=== PATIENT | female | born 1985 | race Caucasian/White ===

== ENCOUNTER 2021-06-09 01:58 | Emergency (ER) | payer MEDICAID ==
[~2021-06-09] VITALS: Ht 160 cm; Wt 58.5 kg
[2021-06-09] MEDS ORDERED: ondansetron 4mg/5ml UD cup PO STA (02:37)
[2021-06-09] MEDS ORDERED: ondansetron 4mg rapidly disintigrating tab PO STA (02:41)
[2021-06-09] MEDS ORDERED: normal saline 1000ML IV soln IVB ONE ×2 (02:55→04:50)
[2021-06-09 03:27] LABS: BASOPHILS % (AUTO) 0.7 % (0-1); EOSINOPHILS # (AUTO) 0.3 X10'3 (0-0.9); EOSINOPHILS % (AUTO) 3.9 % (0-6); HEMATOCRIT 42.8 % (35.0-45.0); HEMOGLOBIN 14.9 g/dl (12.0-16.0); LYMPHOCYTES # (AUTO) 1.4 X10'3 (1.1-4.8); LYMPHOCYTES % (AUTO) 20.1 % (21-51); MEAN CORPUSCULAR HGB CONC 34.8 g/dL (33.0-36.5); MEAN CORPUSCULAR VOLUME 89.1 FL (78-98); MEAN PLATELET VOLUME 7.9 FL (7.4-10.4); MONOCYTES # (AUTO) 0.4 X10'3 (0-0.9); MONOCYTES % (AUTO) 5.8 % (2-12); NEUTROPHILS # (AUTO) 4.7 X10'3 (1.8-7.7); NEUTROPHILS % (AUTO) 69.5 % (42-75); PLATELET COUNT 272 X10'3 (140-440); RED BLOOD COUNT 4.81 X10'6 (4.20-5.60); WHITE BLOOD COUNT 6.8 X10'3 (4.5-11.0)
[2021-06-09 03:36] LABS: ALANINE AMINOTRANSFERASE 13 U/L (12-78); ALBUMIN 4.4 G/DL (3.4-5.0); ALBUMIN/GLOBULIN RATIO 1.3 (1.1-1.5); ALKALINE PHOSPHATASE 62 IU/L (46-116); ANION GAP 15 (8-16); ASPARTATE AMINO TRANSFERASE 17 U/L (10-37); BILIRUBIN,TOTAL 1.6 MG/DL (0.1-1.0); BLOOD UREA NITROGEN 14 MG/DL (7-18); BUN/CREATININE RATIO 19.2 (6.6-38.0); CALCIUM 8.9 MG/DL (8.5-10.1); CHLORIDE 102 MMOL/L (99-107); CREATININE 0.73 MG/DL (0.40-0.90); GLUCOSE 79 MG/DL (70-104); LIPASE < 50 U/L (73-393); POTASSIUM 3.6 MMOL/L (3.5-5.1); SODIUM 139 MMOL/L (135-145); TOTAL CARBON DIOXIDE 21.6 MMOL/L (24-32); TOTAL PROTEIN 7.8 G/DL (6.4-8.2); eGFR 90 ML/MIN
[2021-06-09] MEDS ORDERED: acetaminophen 325mg tablet PO ONE (04:05)
--- NOTE | 2021-06-09 04:27 | NUR ---
PT UNABLE TO VOID
[2021-06-09] MEDS ORDERED: ONDA4TAB6 PO (04:46)
[2021-06-09 06:07] VITALS: BP 98/57
== END 2021-06-09 06:16 | disposition home or self-care (01) ==
LOC: ER 01:58
DX: K52.9 Noninfective gastroenteritis and colitis, unspecified (principal); Z20.822 Contact with and (suspected) exposure to COVID-19; E86.0 Dehydration; R42 Dizziness and giddiness; A05.9 Bacterial foodborne intoxication, unspecified; Z79.899 Other long term (current) drug therapy
CPT/HCPCS: 36415; 71045; 80053; 83690; 85025; 87635; 96360; 96361; 99284; C9803; J7030

== ENCOUNTER 2024-04-24 07:24 | Emergency (ER) | payer SELFPAY ==
[~2024-04-24] VITALS: Ht 162.6 cm; Wt 67.1 kg
[~2024-04-24 07:24] MED LIST: ONDA4TAB6 PO
[2024-04-24 07:36] VITALS: TEMP 98.4
[2024-04-24] MEDS ORDERED: HYDR-3686 PO (07:38)
[2024-04-24] MEDS ORDERED: OMEP20CA16 PO (07:38)
[2024-04-24 08:17] LABS: BASOPHILS % (AUTO) 0.6 % (0-1); EOSINOPHILS # (AUTO) 0.2 X10'3 (0-0.9); EOSINOPHILS % (AUTO) 2.4 % (0-6); HEMATOCRIT 43.8 % (35.0-45.0); HEMOGLOBIN 14.7 g/dl (12.0-16.0); LYMPHOCYTES # (AUTO) 1.4 X10'3 (1.1-4.8); LYMPHOCYTES % (AUTO) 18.5 % (21-51); MEAN CORPUSCULAR HEMOGLOBIN 29.6 PG (27.0-31.0); MEAN CORPUSCULAR HGB CONC 33.5 g/dL (33.0-36.5); MEAN CORPUSCULAR VOLUME 88.5 FL (78-98); MEAN PLATELET VOLUME 7.7 FL (7.4-10.4); MONOCYTES # (AUTO) 0.5 X10'3 (0-0.9); MONOCYTES % (AUTO) 7.4 % (2-12); NEUTROPHILS # (AUTO) 5.2 X10'3 (1.8-7.7); NEUTROPHILS % (AUTO) 71.1 % (42-75); PLATELET COUNT 337 X10'3 (140-440); RED BLOOD COUNT 4.95 X10'6 (4.20-5.60); WHITE BLOOD COUNT 7.4 X10'3 (4.5-11.0)
[2024-04-24] MEDS: LORazepam 1 MG tablet PO ONE ×2 (08:18→08:36)
[2024-04-24 08:20] LABS: APTT 26 SECONDS (22-32); INR 1.1 INR; PROTHROMBIN TIME 11.8 SECONDS (9.0-12.0)
[2024-04-24 08:34] LABS: ALANINE AMINOTRANSFERASE 20 U/L (12-78); ALBUMIN 4.1 G/DL (3.4-5.0); ALBUMIN/GLOBULIN RATIO 1.1 (1.1-1.5); ALKALINE PHOSPHATASE 73 IU/L (46-116); ANION GAP 12 (8-16); ASPARTATE AMINO TRANSFERASE 12 U/L (10-37); BLOOD UREA NITROGEN 10 MG/DL (7-18); BUN/CREATININE RATIO 12.7 (10.0-20.0); CHLORIDE 103 MMOL/L (99-107); CREATININE 0.79 MG/DL (0.40-0.90); FREE T4 (FREE THYROXINE) 1.29 NG/DL (0.73-1.40); GLUCOSE 112 MG/DL (70-104); PRO BRAIN NATRIURETIC PEPTIDE 38 PG/ML (0-125); SODIUM 141 MMOL/L (135-145); THYROID STIMULATING HORMONE 1.59 ulU/ml (0.34-4.50); TOTAL CARBON DIOXIDE 26.1 MMOL/L (24-32); eCRCL 82 ML/MIN; eGFR 81 ML/MIN
[2024-04-24] MEDS: ondansetron 4mg rapidly disintigrating tab PO ONE (08:36)
[2024-04-24 08:38] LABS: BETA HCG,QUANTITATIVE < 1.0 mIU/ml
[2024-04-24 08:49] LABS: BILIRUBIN,URINE SMALL (Neg); CLARITY,URINE SLIGHTLY CLOUDY (Clear); COLOR,URINE YELLOW (Yellow); GLUCOSE, URINE NEGATIVE (Neg); KETONES,URINE >=80 mg/dl (Neg); LEUKOCYTE ESTERASE ,URINE NEGATIVE (Neg); NITRITES, URINE NEGATIVE (Neg); OCCULT BLOOD,URINE LARGE (Neg); PROTEIN,URINE TRACE mg/dl (Neg); UROBILINOGEN,URINE 0.2 E.U/dL (0.2-1.0)
[2024-04-24 09:02] LABS: UA COLLECTION TYPE CLN CATCH MIDSTREAM; URINE AMPHETAMINE SCREEN NEGATIVE (Neg); URINE BARBITUATE SCREEN NEGATIVE (Neg); URINE BENZODIAZEPINES SCREEN POSITIVE (Neg); URINE CANNABINOID SCREEN POSITIVE (Neg); URINE COCAINE SCREEN NEGATIVE (Neg); URINE METHADONE SCREEN NEGATIVE (Neg); URINE OPIATE SCREEN NEGATIVE (Neg); URINE PHENCYCLIDINE SCREEN NEGATIVE (Neg)
[2024-04-24 09:03] LABS: CAL OXALATE CRYSTALS 2+ /HPF (NEGATIVE); WBC,URINE 0-4 /HPF (0-4)
[2024-04-24 09:05] LABS: AMORPHOUS URATES 2+; BACTERIA,URINE 2+ /HPF (Neg); MUCUS STRANDS NONE SEEN /LPF (Neg); RBC,URINE 0-2 /HPF (0-2); SQUAMOUS EPITHELIAL CELL,UR MANY /LPF (FEW)
[2024-04-24] MEDS: potassium Cl 20 mEq SR tablet PO STA (09:16)
[2024-04-24] MEDS ORDERED: CLON0.1T2 PO (10:24)
[2024-04-24] MEDS ORDERED: ONDA4TAB12 PO (10:24)
[2024-04-24] MEDS ORDERED: ESCI-8 PO (10:24)
[2024-04-24 10:32] VITALS: BP 112/64; PULSE 64; RESP 14; O2SAT 98
== END 2024-04-24 10:34 | disposition home or self-care (01) ==
LOC: ER 07:24
DX: F41.9 Anxiety disorder, unspecified (principal); R07.9 Chest pain, unspecified; R42 Dizziness and giddiness; R19.7 Diarrhea, unspecified; Z79.899 Other long term (current) drug therapy
CPT/HCPCS: 36415; 71045; 80053; 80305; 81001; 83880; 84439; 84443; 84484; 84702; 85025; 85610; 85730; 93005; 99285